=== PATIENT | female | born 1960 | race Caucasian/White ===

== ENCOUNTER 2020-09-08 09:58 | Emergency (ER) | payer SELFPAY ==
[~2020-09-08] VITALS: Ht 165.1 cm; Wt 73.0 kg
[2020-09-08 10:05] VITALS: BP 116/75
--- NOTE | 2020-09-08 10:15 | NUR ---
Patient bib family member for c/o bilat eye itching/pain x 15 days. Rates pain 3/10. Will continue to monitor the patient.
[2020-09-08] MEDS ORDERED: ERYT3.5O9 EACHEYE (10:31)
== END 2020-09-08 10:38 | disposition home or self-care (01) ==
LOC: ER 10:04
DX: H00.14 Chalazion left upper eyelid (principal); H10.89 Other conjunctivitis; I10 Essential (primary) hypertension; Z79.899 Other long term (current) drug therapy